=== PATIENT | female | born 1960 | race African-American/Black ===

== ENCOUNTER 2019-10-03 20:43 | Emergency (ER) | payer SELFPAY ==
[~2019-10-03] VITALS: Ht 180.3 cm; Wt 109.3 kg
[2019-10-03] MEDS ORDERED: HYDRALAZINE HCL 20 MG/ML VIAL IV STA (21:28)
[2019-10-03] MEDS ORDERED: HYDRALAZINE HCL 20 MG/ML VIAL ONE (21:48)
[2019-10-03] MEDS ORDERED: ACETAMINOPHEN 325 MG TAB ONE (21:48)
--- NOTE | 2019-10-03 22:36 | Diagnostic Imaging Report ---
Examination: Single AP view of the chest. COMPARISON: None. INDICATION: Hypoechoic pressure, chest pain IMPRESSION: 1. Lines and Tubes: None 2. Lungs are well-inflated. Minimal atelectatic changes in the left lower lung. No consolidation or effusion. 3. Cardiomediastinal silhouette is normal. Pulmonary vasculature is normal. 4. No acute bony abnormalities. Signed by: Dr. Damon Servin M.D. on 10/03/2019 10:32 PM
--- NOTE | 2019-10-03 22:39 | Emergency Department Note ---
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 PT'S CURRENT BP 215/102, STATES SHE HAS BEEN HAVING "TINY, SHARP" PAINS TO LEFT UPPER CHEST , OCCASIONAL HEADACHES AND SOME NAUSEA. . 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 Required: No Onset (how long ago): day(s) (2) Location: all over Quality: dull Radiation: Denies non-radiation, Denies back, Denies neck, Denies extremity, Denies abdomen, Denies periumbilical, Denies flank, Denies proximal, Denies distal, Denies other Severity: moderate Onset quality: gradual Duration (how long): day(s) (2) Timing of current episode: constant Progression: waxing and waning Chronicity: new Context: Denies recent illness, Denies recent surgery, Denies recent immobilization, Denies recent travel, Denies trauma/injury, Denies new medications, Denies hx of DVT/PE, Denies non-compliance w/ medications, Denies other Relieving factors: none Exacerbating factors: none Associated symptoms: Reports fever/chills; Denies denies other symptoms, Denies confusion, Denies chest pain, Denies cough, Denies diaphoresis, Denies headaches, Denies loss of appetite, Denies m alaise, Denies nausea/vomiting, Denies rash, Denies seizure, Denies shortness of breath, Denies syncope, Denies weakness, Denies other Treatments prior to arrival: none Past Medical/Family History Physician Review I have reviewed the patient's past medical and family history. Any updates have been documented here. Past Medical History Recent Fever: No Clinical Suspicion of Infectio: No New/Unexplained Change in Ment: No Social History Smoking Cessation: Never Smoker Alcohol Use: None Review of Systems Review of Systems Constitutional: Reports no symptoms EENTM: Reports no symptoms Cardiovascular: Reports no symptoms Respiratory: Reports no symptoms Gastrointestinal: Reports no symptoms Genitourinary: Reports no symptoms Musculoskeletal: Reports no symptoms Integumentary: Reports no symptoms Neurological: Reports no symptoms Psychological: Reports no symptoms Endocrine: Reports no symptoms Hematological/Lymphatic: Reports no symptoms Physical Exam Related Data Allergies: Coded Allergies: No Known Allergies (Unverified , 10/03/19) Triage Vital Signs Vital Signs Date Time Temp Pulse Resp B/P (MAP) Pulse Ox O2 Delivery O2 Flow Rate FiO2 10/03/19 21:30 100.2 94 18 215/102 100 Room Air Vital signs reviewed: Yes Physical Exam CONSTITUTIONAL Constitutional: Present well-developed, Present well-nourished HENT HENT: Present normocephalic, Present atraumatic, Present oropharynx clear/moist, Present nose normal HENT L/R: Present left ext ear normal, Present right ext ear normal EYES Eyes: Reports PERRL, Reports conjunctivae normal NECK Neck: Present ROM normal PULMONARY Pulmonary: Present effort normal, Present breath sounds normal CARDIOVASCULAR Cardiovascular: Present regular rhythm, Present heart sounds normal, Present capillary refill normal, Present normal rate GASTROINTESTINAL Abdominal: Present soft, Present nontender, Present bowel sounds normal GENITOURINARY Genitourinary: Present exam deferred SKIN Skin: Present warm, Present dry MUSCULOSKELETAL Musculoskeletal: Present ROM normal NEUROLOGICAL Neurological: Present alert, Present oriented x 3, Present no gross motor or sensory deficits PSYCHOLOGICAL Psychological: Present mood/affect normal, Present judgement normal Results Laboratory Lab results reviewed: Yes Imaging Imaging results reviewed: Yes Critical Care Time Total Critical Care Time (min): 35 Critical care time exclusive o: separately billable procedures Critcal care necessary due to: other (HYPERTENSIVE CRISIS) Critcal care time spent by me: blood dram for specimens, develop tx plan w patient/surrogate, evaluation patient response to tx, examination of patient, obtaining hx from patient/surrogate, order/perform tx or interventions, order/review laboratory studies, order/review radiographic studies, pulse oximetry, re-evaluation of patient condition Assessment & Plan Medical Decision Making MDM HTN CRISIS Reassessment Reassessment time: 22:37 Reassessment BETTER Assessment & Plan Final Impression: (1) Hypertensive crisis (2) Fever Depart Disposition: HOME, SELF-CARE Last Vital Signs Date Time Temp Pulse Resp B/P (MAP) Pulse Ox O2 Delivery O2 Flow Rate FiO2 10/03/19 21:52 173/93 10/03/19 21:30 100.2 94 18 100 Room Air Medications in the ED Hydralazine HCl 20 mg NOW STAT IV Last administered on 10/03/19at 21:52; Admin Dose 10 MG; Start 10/03/19 at 21:28; Stop 10/03/19 at 21:40; Status DC Hydralazine HCl 20 mg STK-MED ONCE .ROUTE ; Start 10/03/19 at 21:48; Stop 10/03/19 at 21:42; Status DC Acetaminophen 650 mg STK-MED ONCE .ROUTE ; Start 10/03/19 at 21:48; Stop 10/03/19 at 21:42; Status DC JAQUELINE LEE MD Oct 03, 2019 22:39
[2019-10-03] MEDS ORDERED: LISINOPRIL10 MG PO (22:40)
== END 2019-10-03 23:10 | disposition home or self-care (01) ==
LOC: FSED 21:29
DX: I16.9 Hypertensive crisis, unspecified (principal); R50.9 Fever, unspecified; R51 Headache; R11.0 Nausea
CPT/HCPCS: 71045; 80053; 81003; 85025; 93005; 99283; J0360